=== PATIENT | male | born 1945 | race Asian ===

== ENCOUNTER 2017-07-21 13:06 | Emergency (ER) | payer SELFPAY ==
[2017-07-21 14:01] LABS: #Eosinphils 0.1 thou/uL (0.0-0.7); #Lymphocytes 0.5 thou/uL (1.20-3.40); #Monocytes 0.3 thou/uL (0.11-0.59); #Neutrophils 2.3 thou/uL (1.40-6.50); %Basophils 0.3 % (0.0-1.0); %Eosinophils 1.6 % (0.0-10.0); %Lymphocytes 16.2 % (21.0-51.0); %Monocytes 10.6 % (0.0-10.0); Hematocrit 33.1 % (42.0-52.0); Mean Platelet Volume 7.7 fL (7.4-10.4); Red Blood Cell (RBC) Count 3.49 mill/uL (4.70-6.10); White Blood Cell (WBC) Count 3.2 thou/uL (4.8-10.8)
[2017-07-21 14:24] LABS: ALT (SGPT) 32 U/L (8-55); AST (SGOT) 72 U/L (5-34); Alkaline Phosphatase 66 U/L (40-150); Anion Gap 13 mmol/L (10-20); BUN (Urea Nitrogen) 20 mg/dL (8.4-25.7); CK (CPK) 729 U/L (30-200); Calc. Creatinine Clearance 0 mL/min (70-130); Calcium 8.5 mg/dL (7.8-10.44); Carbon Dioxide 24 mmol/L (23-31); Chloride 108 mmol/L (98-107); Estimated GFR-MDRD 73; Globulin 2.4 g/dL (2.4-3.5); Protein, Total 5.8 g/dL (5.8-8.1)
[2017-07-21 14:28] LABS: Troponin I Less than 0.010 ng/mL (< 0.028)
--- NOTE | 2017-07-21 14:37 | RAD ---
PORTABLE UPRIGHT FRONTAL CHEST: Date: 07/21/17 COMPARISON: None. HISTORY: Increasing altered mental status over the last several days with weakness and fever. FINDINGS: There is mild increased linear interstitial density seen throughout both lungs. There is no pneumoth orax or pleural fluid and no focal consolidation or alveolar edema. There is atherosclerotic calcifi cation of the aortic arch. There are degenerative changes involving bilateral AC joints. IMPRESSION: No acute findings. POS: PAT
[2017-07-21 14:59] LABS: Bilirubin Negative (Negative); Blood, Urine Negative (Negative); Glucose, Urine (Dipstick) Negative (Negative); Ketone, Urine Trace mg/dL (Negative); Nitrite Negative (Negative); Protein, Urine (Dipstick) Negative (Neg-Trace)
== END 2017-07-21 16:11 | disposition home or self-care (01) ==
LOC: ERS 13:06
DX: G20 Parkinson's disease (principal); E86.0 Dehydration; D69.6 Thrombocytopenia, unspecified; I10 Essential (primary) hypertension; F41.9 Anxiety disorder, unspecified; N40.0 Benign prostatic hyperplasia without lower urinary tract symptoms; K21.9 Gastro-esophageal reflux disease without esophagitis; E78.5 Hyperlipidemia, unspecified
CPT/HCPCS: 36415; 51701; 71010; 80053; 81003; 82550; 82553; 83605; 83690; 83880; 84443; 84484; 85025; 87040; 93005; 96360; 96361

== ENCOUNTER 2017-10-21 07:45 | Outpatient (CLI) | payer OTHER | END 2017-10-21 07:46 | disposition home or self-care (01) | LOC: BICULT 07:45 | PROVIDERS: ATTEND Internal Medicine Medical Oncology | DX: R16.1 Splenomegaly, not elsewhere classified (principal); I10 Essential (primary) hypertension; D69.6 Thrombocytopenia, unspecified; N20.0 Calculus of kidney; N28.1 Cyst of kidney, acquired | CPT/HCPCS: 76700 ==